=== PATIENT | male | born 1975 | race Caucasian/White ===

== ENCOUNTER 2024-04-07 07:27 | Day surgery (SDC) | payer OTHER ==
[~2024-04-07] VITALS: Ht 175.3 cm; Wt 83.0 kg
[2024-04-07] MEDS ORDERED: SIMETHICONE 40 MG/0.6 ML ML ONE (07:42)
[2024-04-07] MEDS ORDERED: MEPERIDINE 100 MG INJ. 100 MG/ML VIAL ONE (07:43)
[2024-04-07] MEDS ORDERED: MIDAZOLAM HCL 5 MG/5 ML VIAL ONE (07:43)
[2024-04-07] MEDS ORDERED: GENTAMICIN SULFATE 400 MG in NS 100 ML IV ONE (08:15)
[2024-04-07] MEDS ORDERED: AMPICILLIN SODIUM 1 GM in NS 50 ML IV ONE (08:15)
[2024-04-07 11:32] VITALS: O2SAT 99
[2024-04-07 12:22] VITALS: BP_SYST 157; PULSE 52; RESP 18
== END 2024-04-07 11:00 | disposition home or self-care (01) ==
LOC: SGI 07:27 → SMU 07:28 → SGI 11:00
PROVIDERS: ATTEND Internal Medicine Gastroenterology
DX: K59.00 Constipation, unspecified (principal); K29.30 Chronic superficial gastritis without bleeding; D12.3 Benign neoplasm of transverse colon; D12.5 Benign neoplasm of sigmoid colon; D64.9 Anemia, unspecified; K22.10 Ulcer of esophagus without bleeding; R10.9 Unspecified abdominal pain; K57.30 Diverticulosis of large intestine without perforation or abscess without bleeding; K64.8 Other hemorrhoids; I10 Essential (primary) hypertension; Z79.899 Other long term (current) drug therapy; Z87.891 Personal history of nicotine dependence; Z98.890 Other specified postprocedural states
CPT/HCPCS: 45385; 43239; 87081; 36415; 88305; 88312; 88313; 99152; 99153; G0378; J0290; J1580; J2250; J2175; 45384